=== PATIENT | male | born 1965 | race African-American/Black ===

== ENCOUNTER 2018-05-28 18:38 | Inpatient (IN) | payer MEDICARE, MEDICAID ==
[~2018-05-28] VITALS: Ht 175.3 cm; Wt 81.6 kg
[~2018-05-28 18:38] MED LIST: AM100 PO; COGENTIN PO; DOCUSATE SODIUM PO; HYDROCORTISONE TD; LACT10SO PO; LUVOX PO; MILK OF MAGNESIA PO; QUET200T PO; QUET300T2 PO; RISP2 PO; SEROQUEL PO; VITAMIN D PO; ZOLP10TA2 PO
[2018-05-28] MEDS ORDERED: ACETAMINOPHEN 650MG SUPP PR STA (19:56)
[2018-05-28] MEDS ORDERED: SODIUM CHLORIDE 0.9% 1000ML BAG (SEPSIS BOLUS) IV ONE (20:00)
[2018-05-28] MEDS ORDERED: VANCOMYCIN 1 G PREMIX 200 ML IV ONE (20:00)
[2018-05-28] MEDS ORDERED: PIPERACILLIN/TAZ 3.375G PREMIX 50 ML IV ONE (20:00)
[2018-05-28 20:18] LABS: HEMATOCRIT. 37.7 % (42.0-52.0); HEMOGLOBIN. 12.7 g/dL (14.0-18.0); MEAN CORPUSCULAR VOLUME 85.8 fL (80.0-94.0); MEAN PLATELET VOLUME 7.5 fl (7.4-10.4); PLATELET 208 x1000/uL (130-400); RED BLOOD CELL COUNT 4.39 mill/uL (4.7-6.1)
[2018-05-28 20:24] LABS: CHLORIDE 98 mEq/L (98-107)
[2018-05-28 20:24] LABS: BG BASE EXCESS -0.6 mmol/L (-2.0-2.0); BG CARBOXYHEMOGLOBIN 0.2 % (0.5-1.5); BG DEOXYHEMOGLOBIN 3.9 % (0.0-5.0); BG FRACTION INSPIRED OXYGEN 21; BG HCO3 ACT 21.8 mmol/L (22.0-26.0); BG METHEMOGLOBIN 0.5 % (0.0-1.5); BG OXYGEN SATURATION 96.1 % (92.0-98.5); BG OXYHEMOGLOBIN 95.4 % (94.0-97.0); BG PCO2 29.3 mmHg (35.0-45.0); BG PO2 79.7 mmHg (75.0-100.0); BG SAMPLE SITE RIGHT RADIAL; BG TOTAL HEMOGLOBIN 11.8 g/dL (12.0-18.0); BG VENT MODE ROOM AIR
[2018-05-28 20:57] LABS: PLATELET ESTIMATE NORMAL
[2018-05-28] MEDS ORDERED: ACETAMINOPHEN 325MG TABLET PO ONE (21:00)
[2018-05-28] MEDS ORDERED: VISCOUS LIDOCAINE 2% 15 ML UDC PO STA (22:41)
[2018-05-28] MEDS ORDERED: FAMOTIDINE 20MG/2ML VIAL IV STA (22:41)
[2018-05-28] MEDS ORDERED: MAGNESIUM/ALUMINUM HYDROXIDE/SIMETHICONE 30ML UDC PO STA (22:41)
[2018-05-28] MEDS ORDERED: ONDANSETRON HCL 4MG/2ML INJ IV STA (22:41)
[2018-05-28] MEDS ORDERED: IOHEXOL-350 100 ML BOTTLE ONE (23:26)
[2018-05-29 00:58] LABS: CLARITY URINE CLOUDY (CLEAR); COLOR URINE YELLOW (YELLOW); KETONES URINE NEGATIVE (NEGATIVE); LEUKOCYTE ESTERASE URINE 3+ (NEGATIVE); NITRITE URINE POSITIVE (NEGATIVE); OCCULT BLOOD URINE TRACE (NEGATIVE); PROTEIN URINE NEGATIVE (NEGATIVE); SPECIFIC GRAVITY URINE 1.019 (1.005-1.030); UROBILINOGEN URINE 0.2 E.U./dL (0.2-1.0)
[2018-05-29] MEDS ORDERED: BISA-81 PO (01:52)
[2018-05-29] MEDS ORDERED: CLOM50CA4 MT (01:54)
[2018-05-29] MEDS ORDERED: CLON0.5T12 PO (01:57)
[2018-05-29] MEDS ORDERED: CLON2TAB11 PO (01:59)
[2018-05-29] MEDS ORDERED: GUAIFENESIN 200MG/10ML SUGAR FREE UDC PO PRN (07:15)
[2018-05-29] MEDS ORDERED: LORAZEPAM 2MG/ML CPJ IV PRN (07:15)
[2018-05-29] MEDS ORDERED: DOCUSATE SODIUM 100MG CAPSULE PO PRN (07:15)
[2018-05-29] MEDS ORDERED: ONDANSETRON HCL 4MG/2ML INJ IV PRN (07:15)
[2018-05-29] MEDS ORDERED: IPRATROPIUM/ALBUTEROL 0.5-3(2.5)MG/3ML NEB INH PRN (07:15)
[2018-05-29] MEDS ORDERED: HYDROCODONE/ACETAMINOPHEN 5/325MG TABLET PO PRN (07:15)
[2018-05-29] MEDS ORDERED: ACETAMINOPHEN 325MG TABLET PO PRN (07:15)
[2018-05-29] MEDS ORDERED: CLONIDINE 0.1MG TABLET PO PRN (07:15)
[2018-05-29] MEDS ORDERED: DIPHENHYDRAMINE 50MG/ML VIAL IV PRN (07:15)
[2018-05-29] MEDS ORDERED: NA PHOS,M-B/NA PHOS,DI-BA ENEMA 118ML PR PRN (07:15)
[2018-05-29] MEDS ORDERED: MORPHINE SULFATE 4 MG/ML CPJ (NOT FOR IM USE) IV PRN (07:15)
[2018-05-29] MEDS ORDERED: MAGNESIUM/ALUMINUM HYDROXIDE/SIMETHICONE 30ML UDC PO PRN (07:15)
[2018-05-29 07:46] LABS: CHLORIDE 103 mEq/L (98-107)
[2018-05-29] MEDS: ASPIRIN 81MG EC TABLET PO SCH (09:00)
[2018-05-29] MEDS ORDERED: ENOXAPARIN 40MG/0.4ML SYR SUBCUT SCH (14:00)
[2018-05-29 14:28] LABS: CREATINE KINASE 79 IU/L (39-308)
[2018-05-29 14:29] LABS: T4 FREE 0.7 ng/dL (0.76-1.46)
[2018-05-29 14:30] LABS: CREATINE KINASE MB FRACTION < 1.0 ng/mL (0.5-3.6)
[2018-05-29] MEDS ORDERED: BISACODYL 5MG TABLET PO PRN (15:30)
[2018-05-29] MEDS ORDERED: DOCUSATE SODIUM 250MG CAPSULE PO SCH (15:30)
[2018-05-29] MEDS ORDERED: LEVOFLOXACIN 750MG PREMIX 150 ML IV NR (16:30)
[2018-05-29] MEDS: CHOLECALCIFEROL (D3) 1000 UNIT TABLET PO SCH (16:48)
[2018-05-29] MEDS: BENZTROPINE MESYLATE 0.5MG TABLET PO SCH (16:48)
[2018-05-29 17:20] VITALS: BP 109/66
[2018-05-29] MEDS: DOCUSATE SODIUM 100MG CAPSULE PO SCH (19:35)
[2018-05-29] MEDS: QUETIAPINE FUMARATE 100MG TABLET PO SCH (19:35)
[2018-05-29 20:00] VITALS: BP 115/72
[2018-05-29] MEDS ORDERED: CLONAZEPAM 1MG TABLET PO SCH (20:00)
[2018-05-30] VITALS: BP 122/71
[2018-05-30 00:18] LABS: CREATINE KINASE 77 IU/L (39-308)
[2018-05-30 00:19] LABS: CREATINE KINASE MB FRACTION < 1.0 ng/mL (0.5-3.6)
[2018-05-30 04:00] VITALS: BP 120/96
[2018-05-30 06:48] LABS: BASOPHILS % 0.2 % (0.0-2.0); EOSINOPHILS % 0.9 % (0.0-5.0); HEMATOCRIT. 36.4 % (42.0-52.0); LYMPHOCYTES % 10.8 % (20.0-50.0); MEAN CORPUSCULAR HEMOGLOBIN 28.3 pg (28.0-32.0); MEAN CORPUSCULAR VOLUME 85.9 fL (80.0-94.0); MEAN PLATELET VOLUME 8.1 fl (7.4-10.4); MONOCYTES % 11.2 % (2.0-8.0); NEUTROPHILS % 76.9 % (40.0-76.0); PLATELET 200 x1000/uL (130-400); RED BLOOD CELL COUNT 4.24 mill/uL (4.7-6.1)
[2018-05-30 07:01] LABS: CHLORIDE 105 mEq/L (98-107)
[2018-05-30 07:36] LABS: LDL CHOLESTEROL 61 mg/dL (5-100)
[2018-05-30 07:37] LABS: CREATINE KINASE 70 IU/L (39-308); CREATINE KINASE MB FRACTION < 1.0 ng/mL (0.5-3.6); HDL CHOLESTEROL 67 mg/dL (40-59); T4 FREE 0.82 ng/dL (0.76-1.46)
[2018-05-30 08:00] VITALS: BP 100/58
[2018-05-30] MEDS ORDERED: CLONAZEPAM 0.5MG TABLET PO SCH (08:00)
[2018-05-30] MEDS ORDERED: LACTULOSE 20G/30ML UDC PO SCH (09:00)
[2018-05-30] MEDS: DOCUSATE SODIUM 100MG CAPSULE PO SCH (10:15)
[2018-05-30] MEDS: QUETIAPINE FUMARATE 100MG TABLET PO SCH (10:15)
[2018-05-30] MEDS: ASPIRIN 81MG EC TABLET PO SCH (10:15)
[2018-05-30] MEDS: BENZTROPINE MESYLATE 0.5MG TABLET PO SCH (10:15)
[2018-05-30] MEDS: CHOLECALCIFEROL (D3) 1000 UNIT TABLET PO SCH (10:15)
[2018-05-30 12:47] VITALS: BP 105/65
[2018-05-30 13:47] VITALS: BP 105/65
[2018-05-30] MEDS ORDERED: LEVOFLOXACIN 750MG PREMIX 150 ML IV SCH (15:30)
== END 2018-05-30 14:32 | disposition home or self-care (01) | DRG 871 ==
LOC: ER 18:38 → 8WST 05-29 01:31 → EDBEDREQSVC 05-29 10:00 → ENRESERV 05-29 16:23 → 8WST 05-29 18:07
PROVIDERS: ADMIT Internal Medicine; ATTEND Internal Medicine
DX: A41.9 Sepsis, unspecified organism (principal); J18.9 Pneumonia, unspecified organism; F84.0 Autistic disorder; N39.0 Urinary tract infection, site not specified; D64.9 Anemia, unspecified; F79 Unspecified intellectual disabilities; I11.0 Hypertensive heart disease with heart failure; I25.10 Atherosclerotic heart disease of native coronary artery without angina pectoris; I50.9 Heart failure, unspecified; K59.00 Constipation, unspecified; Z79.899 Other long term (current) drug therapy; Z79.01 Long term (current) use of anticoagulants
CPT/HCPCS: 36415; 36600; 71045; 71275; 80048; 80061; 82375; 82550; 82553; 82805; 83036; 83605; 83880; 84439; 84443; 84484; 85379; 87077; 87186; 87804; 93005; 93306; 93970; 96365; 96366; 96375; 99285; J1650; J1956; J2543; J3370; J7030; J7050; Q9967